=== PATIENT | male | born 1960 | race African-American/Black ===

== ENCOUNTER 2017-06-16 13:38 | Emergency (ER) | payer MEDICAID, OTHER ==
[~2017-06-16] VITALS: Ht 182.9 cm; Wt 72.6 kg
[2017-06-16 13:38] VITALS: BP 120/69
[2017-06-16 14:36] LABS: BASOPHILS % (AUTO) 0.5 % (0.0-2.0); HEMOGLOBIN 10.9 G/DL (14.2-18.0); LYMPHOCYTES % (AUTO) 11.2 % (20.0-45.0); MEAN CORPUSCULAR VOLUME 107 FL (80-99); MONOCYTES % (AUTO) 4.5 % (1.0-10.0); NEUTROPHILS % (AUTO) 83.9 % (45.0-75.0); PLATELET COUNT 225 K/UL (150-450); RED BLOOD COUNT 3.17 M/UL (4.70-6.10); RED CELL DISTRIBUTION WIDTH 13.3 % (11.6-14.8); WHITE BLOOD COUNT 11.1 K/UL (4.8-10.8)
[2017-06-16 14:43] LABS: ANION GAP 11 mmol/L (5-15); BLOOD UREA NITROGEN 16 mg/dL (7-18); CALCIUM 8.7 MG/DL (8.5-10.1); CARBON DIOXIDE 26 MMOL/L (21-32); CHLORIDE 101 MMOL/L (98-107); CREATININE 2.5 MG/DL (0.55-1.30); POTASSIUM 3.5 MMOL/L (3.5-5.1); SODIUM 137 MMOL/L (136-145)
--- NOTE | 2017-06-16 15:21 | Diagnostic Imaging Report ---
Indication: Shortness of breath Technique: XRAY Chest 1v Comparison: None Findings: Patient is slightly rotated to the right. There is suggestion of dextrocardia, with a heart projecting more into the right hemithorax. Thoracic aorta projects to the left of the spine. The stomach bubble is noted on the left. There are patchy opacities in the right base which may be related to atelectasis. Developing pneumonia should be excluded clinically. No pleural effusion. No pneumothorax. No acute osseous abnormality seen. Impression: Patchy right sided lung opacities possibly related to atelectasis. Infectious infiltrate not entirely excluded. Clinical correlation and follow-up exam recommended. Suggestion of dextrocardia as above.
[2017-06-16] MEDS ORDERED: LEVAQUIN750 MG ORAL (15:43)
[2017-06-16] MEDS ORDERED: Levofloxacin 500mg tab ORAL ONE (15:45)
--- NOTE | 2017-06-16 16:41 | Emergency Room Report ---
History of Present Illness General Chief Complaint: Abdominal Pain Source: Patient, EMS Present Illness HPI Patient presents by paramedics for reports of diarrhea for 2 weeks Patient here requires multiple attempts to wake up and noted to provide a history otherwise resting comfortably He does report having diarrhea over the past 14 days Denied any chest pain denies any flank pain he did complain of mid epigastric discomfort as well Patient did not complain of cough however did have several coughing episodes during the exam Denies any fevers denies any rash Allergies: Coded Allergies: No Known Allergies (Unverified , 06/16/17) Patient History Past Medical History: see triage record Pertinent Family History: none Reviewed Nursing Documentation: PMH: Agreed, PSxH: Agreed Nursing Documentation-PMH Past Medical History: No History, Except For Hx Hypertension: Yes Hx Diabetes: Yes Review of Systems All Other Systems: negative except mentioned in HPI Physical Exam Vital Signs Date Time Temp Pulse Resp B/P (MAP) Pulse Ox O2 Delivery O2 Flow Rate FiO2 06/16/17 13:27 97.3 120 16 110/68 96 Room Air Sp02 EP Interpretation: reviewed, normal General Appearance: no apparent distress - However appears mildly disheveled Head: normocephalic, atraumatic Eyes: bilateral eye PERRL, bilateral eye EOMI ENT: hearing grossly normal, normal pharynx, TMs + canals normal, uvula midline Neck: full range of motion, supple, no meningismus, no bony tend Respiratory: lungs clear, normal breath sounds, no rhonchi, no respiratory distress, no retraction, no accessory muscle use Cardiovascular #1: normal peripheral pulses, regular rate, rhythm, no edema, no gallop, no JVD, no murmur Gastrointestinal: normal bowel sounds, non tender, soft, no mass, no organomegaly, non-distended, no guarding, no hernia, no pulsatile mass, no rebound Genitourinary: no CVA tenderness Musculoskeletal: normal inspection Neurologic: oriented x3, responsive, interactive web developer III-XII nml as tested, motor strength/ tone normal, sensory intact Psychiatric: mood/affect normal Skin: normal color, no rash, warm/dry, palpation normal Lymphatic: normal inspection, no adenopathy Medical Decision Making Diagnostic Impression: Primary Impression: pneumonia ER Course Multiple differentials considered patient is hemodynamically stable has benign eval However given the complaints Baseline blood work was obtained given his cough chest x-ray was also obtained Patient blood work is at baseline levels No signs of any severe dehydration on the lab work clinically Patient's abdomen remains soft at this time x-ray did read questionable possible right-sided infiltrate Given the cough patient will be placed on oral antibiotics However he saturates well No signs of retractions or respiratory distress And is stable for initial conservative outpatient trial Labs Test 06/16/17 14:27 White Blood Count 11.1 K/UL (4.8-10.8) Red Blood Count 3.17 M/UL (4.70-6.10) Hemoglobin 10.9 G/DL (14.2-18.0) Hematocrit 34.0 % (42.0-52.0) Mean Corpuscular Volume 107 FL (80-99) Mean Corpuscular Hemoglobin 34.4 PG (27.0-31.0) Mean Corpuscular Hemoglobin Concent 32.1 G/DL (32.0-36.0) Red Cell Distribution Width 13.3 % (11.6-14.8) Platelet Count 225 K/UL (150-450) Mean Platelet Volume 5.0 FL (6.5-10.1) Neutrophils (%) (Auto) 83.9 % (45.0-75.0) Lymphocytes (%) (Auto) 11.2 % (20.0-45.0) Monocytes (%) (Auto) 4.5 % (1.0-10.0) Eosinophils (%) (Auto) 0.0 % (0.0-3.0) Basophils (%) (Auto) 0.5 % (0.0-2.0) Sodium Level 137 MMOL/L (136-145) Potassium Level 3.5 MMOL/L (3.5-5.1) Chloride Level 101 MMOL/L (98-107) Carbon Dioxide Level 26 MMOL/L (21-32) Anion Gap 11 mmol/L (5-15) Blood Urea Nitrogen 16 mg/dL (7-18) Creatinine 2.5 MG/DL (0.55-1.30) Estimat Glomerular Filtration Rate 26.7 mL/min (>60) Glucose Level 99 MG/DL (74-106) Calcium Level 8.7 MG/DL (8.5-10.1) Lipase 75 U/L (73-393) Chest X-Ray Diagnostic Results Chest X-Ray Diagnostic Results : Chest X-Ray Ordered: Yes # of Views/Limited/Complete: 1 View Indication: Shortness of Breath EP Interpretation: Yes Interpretation: no effusion, no pneumothorax, other - Questionable right- sided infiltrate versus atelectasis Impression: Other - questionable right-sided infiltrate Electronically Signed by: Giorgio Goodman DO Last Vital Signs Date Time Temp Pulse Resp B/P (MAP) Pulse Ox O2 Delivery O2 Flow Rate FiO2 06/16/17 13:38 97.3 84 15 120/69 98 Room Air Status: improved Disposition: HOME, SELF-CARE Condition: Improved Scripts Levofloxacin* (LEVAQUIN*) 750 Mg Tablet 750 MG ORAL DAILY for 5 Days, TAB Prov: GIORGIO GOODMAN D.O. 06/16/17 Referrals: NOT CHOSEN IPA/MD,REFERRING (PCP) Patient Instructions: Community-Acquired Pneumonia, Adult, [id number] Additional Instructions: Patient is provided with the discharge instructions notified to follow up with primary doctor in the next 2-3 days otherwise return to the er with any worsening symptoms. Please note that this report is being documented using [employer] technology. This can lead to erroneous entry secondary to incorrect interpretation by the dictating instrument. GIORGIO GOODMAN D.O. Jun 16, 2017 16:41
[2017-06-16 17:30] VITALS: BP 120/69
== END 2017-06-16 17:30 | disposition home or self-care (01) ==
LOC: EDBD 13:38 → EMR 14:34
DX: J18.9 Pneumonia, unspecified organism (principal); E11.9 Type 2 diabetes mellitus without complications; I10 Essential (primary) hypertension; R10.9 Unspecified abdominal pain; R19.7 Diarrhea, unspecified
CPT/HCPCS: 36415; 71045; 80048; 83690; 85025; 99284